=== PATIENT | male | born 1975 | race Two or more races ===

== ENCOUNTER 2023-07-14 15:07 | Inpatient (IN) | payer MEDICAID, OTHER ==
[~2023-07-14] VITALS: Ht 157.5 cm; Wt 73.5 kg
[2023-07-14] MEDS ORDERED: METO25TA4 PO (16:02)
[2023-07-14] MEDS ORDERED: SEVE800T8 PO (16:02)
[2023-07-14] MEDS ORDERED: CINA90TA PO (16:17)
[2023-07-14] MEDS ORDERED: METO25TA6 PO (16:17)
[2023-07-14] MEDS ORDERED: LOSA50TA39 PO (16:17)
[2023-07-14 16:20] LABS: BASOPHILS # (AUTO) 0.1 K/uL (0.0-0.2); BASOPHILS % (AUTO) 1.8 % (0.0-2.0); EOSINOPHILS # (AUTO) 0.2 K/uL (0.0-0.7); EOSINOPHILS % (AUTO) 4.6 % (0.0-6.0); HEMATOCRIT 47 % (39-51); HEMOGLOBIN 15.1 g/dL (13.5-17.5); LYMPHOCYTES # (AUTO) 0.3 K/uL (0.8-4.8); LYMPHOCYTES % (AUTO) 6.7 % (20.0-44.0); MEAN CORPUSCULAR HEMOGLOBIN 33 PG (26.0-33.0); MEAN CORPUSCULAR HGB CONC 32 g/dl (31.0-36.0); MEAN CORPUSCULAR VOLUME 102 fL (80-96); MONOCYTES # (AUTO) 0.3 K/uL (0.1-1.30); MONOCYTES % (AUTO) 6.6 % (2.0-12.0); NEUTROPHILS # (AUTO) 3.9 K/uL (1.8-8.9); NEUTROPHILS % (AUTO) 80.3 % (43.0-81.0); PLATELET COUNT (AUTO) 144 K/uL (150-450); RED BLOOD CELL COUNT(AUTO) 4.57 MIL/uL (4.5-6.0); RED CELL DISTRIBUTION WIDTH 14.9 % (11.5-15.0); WHITE BLOOD COUNT (AUTO) 4.8 K/uL (4.3-11.0)
[2023-07-14] MEDS ORDERED: SODI10PO PO (16:20)
[2023-07-14 16:28] LABS: CALCIUM, SERUM 7.3 mg/dL (8.5-10.1)
[2023-07-14 16:32] LABS: CREATININE 10.9 mg/dL (0.6-1.3)
[2023-07-14] MEDS ORDERED: INSULIN REGULAR, HUMAN 100 UNIT/ML 10 ML VIAL IV ONE (17:00)
[2023-07-14] MEDS ORDERED: CALCIUM CHLORIDE 1,000 MG/10 ML DISP.SYRIN IV ONE (17:00)
[2023-07-14] MEDS ORDERED: ALBUTEROL FS 2.5 MG/3 ML VIAL.NEB NEB ONE (17:00)
[2023-07-14] MEDS ORDERED: DEXTROSE 50%-WATER 50 ML DISP.SYRIN IV ONE (17:00)
[2023-07-14 17:24] VITALS: O2SAT 96
[2023-07-14 17:40] VITALS: O2SAT 99
[2023-07-14 17:46] LABS: ANISOCYTOSIS 1+; EOSINOPHILS % (MANUAL) 3 % (0-4); LYMPHOCYTES % (MANUAL) 12 % (16-48); MONOCYTES % (MANUAL) 9 % (0-11.0); NEUTROPHILS % (MANUAL) 76 (42-76); PLATELET ESTIMATE DECREASED
[2023-07-14] MEDS ORDERED: MORPHINE SULFATE INJ 2 MG/ML DISP.SYRIN IV PRN (19:00)
[2023-07-14] MEDS ORDERED: Medication Not On Formulary EA (Sodium Zirconium Cyclosilicate (Lokelma) 10 GM) PO SCH (19:00)
[2023-07-14] MEDS ORDERED: ACETAMINOPHEN 325 MG TABLET PO PRN (19:00)
[2023-07-14] MEDS ORDERED: ENOXAPARIN SODIUM 40 MG/0.4 ML DISP.SYRIN SQ SCH (19:00)
[2023-07-14] MEDS ORDERED: ONDANSETRON HCL/PF 4 MG/2 ML VIAL IVP PRN (19:00)
[2023-07-14] MEDS: hydrALAZINE HCL IV 20 MG VIAL IV PRN ×2 (19:34→19:39)
[2023-07-14 19:46] LABS: CALCIUM, SERUM 7.9 mg/dL (8.5-10.1); POTASSIUM 5.7 mmol/L (3.5-5.1)
[2023-07-14 19:48] LABS: CREATININE 11.3 mg/dL (0.6-1.3)
[2023-07-14 19:52] LABS: ALBUMIN 3.6 g/dL (3.4-5.0); BILIRUBIN,TOTAL 0.7 mg/dL (0.2-1.0); TOTAL PROTEIN, SERUM 7.3 g/dL (6.4-8.2)
[2023-07-14 20:08] VITALS: BP 185/118; TEMP 98.1; O2SAT 97
[2023-07-14] MEDS ORDERED: HEPARIN SODIUM, PORCINE 5000 UNITS/1 ML VIAL SQ SCH (21:00)
[2023-07-15] MEDS ORDERED: SEVELAMER CARBONATE 800 MG TABLET PO SCH (08:00)
[2023-07-15] MEDS ORDERED: LOSARTAN POTASSIUM 50 MG TABLET PO SCH (09:00)
[2023-07-15] MEDS ORDERED: CINACALCET HCL 30 MG TABLET PO SCH (09:00)
[2023-07-15] MEDS ORDERED: METOPROLOL TARTRATE 25 MG TABLET PO SCH (09:00)
== END 2023-07-14 20:08 | disposition left against medical advice (07) | DRG 425 ==
LOC: ER 15:07 → TRANSITION 19:37 → TELE 19:53
PROVIDERS: ADMIT Internal Medicine; ATTEND Internal Medicine
DX: E87.5 Hyperkalemia (principal); I12.0 Hypertensive chronic kidney disease with stage 5 chronic kidney disease or end stage renal disease; N18.6 End stage renal disease; Z99.2 Dependence on renal dialysis; Z53.29 Procedure and treatment not carried out because of patient's decision for other reasons
CPT/HCPCS: 36415; 80048-TC; 80053-TC; 82962-TC; 83735-TC; 84100-TC; 85025-TC; G0378; J0360; J1815; J2270; J2405; J3490